=== PATIENT | male | born 1935 | race Caucasian/White ===

== ENCOUNTER → 2025-01-14 08:57 | Outpatient (REF) | payer OTHER, SELFPAY ==
[2025-01-14 09:35] LABS: % Basophils 0.3 % (0-2); % Eosinophils 0.1 % (0-6); % Immature Granulocytes 0.5 % (0-0.5); % Lymphocytes 15.3 % (20.5-51.1); % Neutrophils 70.8 % (42.2-75.2); Absolute Lymphocytes 1.2 10^3/uL (1.2-3.4); Absolute Neutrophils 5.4 10^3/uL (1.4-6.5); Hematocrit 34.5 % (39.0-52.0); Hemoglobin 11.4 g/dL (13.0-18.0); Mean Corpuscular Hgb 29.8 pg (27.0-31.0); Mean Corpuscular Volume 90.1 fL (80.0-94.0); Mean Platelet Volume 9.6 fL (7.4-10.4); Nucleated Red Blood Cells % 0 % (-); Platelet Count 211 10^3/uL (130-400); Red Blood Cell Count 3.83 10^6/uL (4.70-6.10); Red Cell Dist. Width 14.6 % (11.5-14.5); White Blood Cell Count 7.6 10^3/uL (4.8-10.8)
[2025-01-14 09:46] LABS: ALT (SGPT) 13 U/L (0-50); AST (SGOT) 26 U/L (17-59); Albumin 3.4 g/dl (3.5-5.0); Alkaline Phosphatase 74 U/L (38-126); Blood Urea Nitrogen 36 mg/dl (9-20); Calcium 9.4 mg/dl (8.4-10.2); Carbon Dioxide 29 mmol/L (22-30); Chloride 100 mmol/L (98-107); Glucose 90 mg/dl (70-99); Potassium 4.8 mmol/L (3.5-5.1); Sodium 134 mmol/L (135-145); Total Protein 6.1 g/dl (6.3-8.2); eGFR 58.17
== END ==
LOC: OLABN 08:57
PROVIDERS: ATTENDING PHYSICIAN Student in an Organized Health Care Education/Training Program
DX: R50.9 Fever, unspecified (principal)
CPT/HCPCS: 36415; 80053; 85025

== ENCOUNTER → 2025-03-06 11:10 | Outpatient (REF) | payer OTHER, SELFPAY ==
[2025-03-06 11:21] LABS: % Basophils 0.4 % (0-2); % Eosinophils 1.7 % (0-6); % Immature Granulocytes 0.5 % (0-0.5); % Lymphocytes 24.7 % (20.5-51.1); % Monocytes 11.7 % (1.7-9.3); Absolute Eosinophils 0.1 10^3/uL (0-0.7); Absolute Monocytes 0.9 10^3/uL (0.1-0.6); Absolute Neutrophils 4.9 10^3/uL (1.4-6.5); Hematocrit 39.3 % (39.0-52.0); Mean Corp Hgb Conc. 33.1 g/dL (33.0-37.0); Mean Corpuscular Hgb 30.7 pg (27.0-31.0); Mean Corpuscular Volume 92.7 fL (80.0-94.0); Mean Platelet Volume 9.6 fL (7.4-10.4); Nucleated Red Blood Cells % 0 % (-); Platelet Count 261 10^3/uL (130-400); Red Blood Cell Count 4.24 10^6/uL (4.70-6.10); Red Cell Dist. Width 15.7 % (11.5-14.5); White Blood Cell Count 8.1 10^3/uL (4.8-10.8)
[2025-03-06 11:43] LABS: Blood Urea Nitrogen 28 mg/dl (9-20); Carbon Dioxide 24 mmol/L (22-30); Chloride 105 mmol/L (98-107); Glucose 86 mg/dl (70-99); Potassium 4.8 mmol/L (3.5-5.1); Sodium 140 mmol/L (135-145); eGFR > 60.00
== END ==
LOC: OLABN 11:10
PROVIDERS: ATTENDING PHYSICIAN Student in an Organized Health Care Education/Training Program
DX: I10 Essential (primary) hypertension (principal)
CPT/HCPCS: 36415; 80048; 85025

== ENCOUNTER 2025-04-12 02:46 | Inpatient (IN) | payer MEDICARE, OTHER, SELFPAY ==
[2025-04-11 20:49] VITALS: BP 133/84
[2025-04-11 21:17] LABS: Urine Albumin 2+ (Neg - Trace); Urine Bilirubin Negative (Negative); Urine Character Clear (Clear); Urine Color Yellow; Urine Glucose Negative (Negative); Urine Ketone Negative (Negative); Urine Leukocyte 1+ (Negative); Urine Nitrite Negative (Negative); Urine Occult Blood 4+ (Negative); Urine Urobilinogen Negative (Neg - 1+)
[2025-04-11 21:27] LABS: % Basophils 0.2 % (0-2); % Eosinophils 0.3 % (0-6); % Immature Granulocytes 0.5 % (0-0.5); % Lymphocytes 11.1 % (20.5-51.1); % Monocytes 8.5 % (1.7-9.3); % Neutrophils 79.4 % (42.2-75.2); Absolute Lymphocytes 0.6 10^3/uL (1.2-3.4); Absolute Monocytes 0.5 10^3/uL (0.1-0.6); Absolute Neutrophils 4.6 10^3/uL (1.4-6.5); Hematocrit 56.3 % (39.0-52.0); Hemoglobin 19.3 g/dL (13.0-18.0); Mean Corp Hgb Conc. 34.3 g/dL (33.0-37.0); Mean Corpuscular Hgb 31.2 pg (27.0-31.0); Mean Corpuscular Volume 91.1 fL (80.0-94.0); Nucleated Red Blood Cells % 0 % (-); Red Blood Cell Count 6.18 10^6/uL (4.70-6.10); Red Cell Dist. Width 14.5 % (11.5-14.5); White Blood Cell Count 5.8 10^3/uL (4.8-10.8)
--- NOTE | 2025-04-11 21:27 | ED.GENMED ---
History of Present Illness
General
Chief Complaint: Change in Mental Status
Source: patient
Exam Limitations: none
Time Seen by Provider: 04/11/25 20:55
History of Present Illness
History of Present Illness:
89-year-old male with history of dementia and agitation presents from [facility] after unresponsive episode. Family tells us that he was sitting at the dining room eating and bystanders saw that he passed out. He was described as being
unresponsive for about 2 minutes. Patient cannot provide any history. Family noticed recent increase in Seroquel and since then he has not seen himself. During my exam the family notes he is very restless and this is abnormal for him as well.
Phy Exam
Physical Exam
Physical Exam:
General: Well-appearing male no acute respiratory distress
HEENT normocephalic atraumatic
Heart: Tachycardic but regular
Lungs: Clear no wheeze
Abdomen is soft and nontender
Neurologic exam: Opens eyes to verbal stimuli. Was able to tell me his name. Does appear restless.
Course
Orders/Labs/Results
Orders:
Orders
04/11/25 21:08
CBC/With Diff [Complete Blood Count/With Diff] Urgent
CMP [Comprehensive Metabolic Panel] Urgent
Urinalysis Reflex To Culture Urgent
Date Specimen was Collected: 04/11/25
Time Specimen was Collected: 21:04
Urine Microscopic Reflex Cult Urgent
Urine Culture Urgent
GAMA Source: U
Specimen Description:
Date Specimen was Collected: 04/11/25
Time Specimen was Collected: 21:04
04/11/25 21:11
EKG [Electrocardiogram (*1)] Urgent
Reason for Study: Tachycardia
EKG- Treatment ONCE
04/11/25 21:14
CT Head W/o Iv Contrast Urgent
Comment:
Reason For Exam: confusion
04/11/25 21:15
Electrocardiogram (*1) Urgent
Reason for Study: Syncope
EKG- Treatment ONCE
04/11/25 21:38
0.9% Sodium Chloride 1000 ml [Nss] 1,000 ml IV BOLUS
04/11/25 23:20
Lorazepam [Ativan] 1 mg IV NOW STA
04/12/25 00:00
CR Chest - 2 Views Urgent
Reason For Exam: syncope
04/12/25 00:11
0.9% Sodium Chloride 500 ml [Nss] 500 ml IV BOLUS
Abnormal Lab Results
04/11/25
21:08
RBC 6.18 H 10^6/uL
(4.70-6.10)
Hgb 19.3 H g/dL
(13.0-18.0)
Hct 56.3 H %
(39.0-52.0)
MCH 31.2 H pg
(27.0-31.0)
Plt Count 97 L 10^3/uL
(130-400)
Absolute Lymphs (auto) 0.6 L 10^3/uL
(1.2-3.4)
Neutrophils % 79.4 H %
(42.2-75.2)
Lymphocytes % 11.1 L %
(20.5-51.1)
Chloride 108 H mmol/L
(98-107)
BUN 52 H mg/dl
(9-20)
Creatinine 1.6 H mg/dL
(0.7-1.3)
Glucose 121 H mg/dl
(70-99)
Total Protein 6.0 L g/dl
(6.3-8.2)
Ur Occult Blood Reflex 4+ A
(Negative)
Leukocyte Esterase Rfl 1+ A
(Negative)
Urine RBC 26-30 A /HPF
(0-2)
Urine Bacteria (Reflex) Few A
(Negative)
Urine Albumin (Reflex) 2+ A
(Neg - Trace)
04/11/25 21:08
04/11/25 21:08
Vital Signs
Initial and Last Documented VS:
Initial Vital Signs
Temp Pulse Resp BP Pulse Ox
98.4 F 130 26 133/84 97
04/11/25 20:49 04/11/25 20:49 04/11/25 20:49 04/11/25 20:49 04/11/25 20:49
Last Documented Vital Signs
Temp Pulse Resp BP Pulse Ox
98.4 F 119 26 96/59 93
04/11/25 20:49 04/12/25 00:00 04/12/25 00:00 04/11/25 23:58 04/12/25 00:00
MDM/Problems Addressed
Differential Diagnosis Includes:
Patient had an unresponsive episode today question syncope versus seizure. Will check for electrolyte abnormality or anemia or arrhythmia. Patient is tachycardic but regular here. Question medication adverse reaction. Patient is not restless.
Workup with urine chest x-ray labs CT of head pending
*Critical Care Note
Total Time (30-74mins, 75-104mins- exclusive of procedures): Not Applicable
Update Note
Update Note:
Patient reevaluated spoke with daughters. Head CT shows no acute finding. He is hemoconcentrated with lab work showing hemoglobin of 19.3 with a BUN of 52 and a creatinine of 1.6. Patient has not yet returned to his baseline. Consider episode
earlier today as a product of syncope perhaps from dehydration. No evidence of arrhythmias. Also consider potential for medication adverse reaction secondary to recent increase of Seroquel. Will admit to hospital
ED Attending Note
-
Portions of this chart may have been created with voice recognition software.� Occasional wrong word or��sound alike� substitutions may have occurred due to the inherent limitations of voice recognition software.
Discharge Plan
Departure
Patient Disposition: Admit
Date of Disposition: 04/12/25
Time of Disposition: 00:39
Presentation/result/management discussed w/ accepting MD/DO: Hospitalist
Discharge Problem:
Acute dehydration
Prescriptions:
No Action
quetiapine [Seroquel] 25 mg Tablet
25 mg PO DAILY
atorvastatin 40 mg Tablet
40 mg PO HS
megestrol 400 mg/10 mL (40 mg/mL) Suspension
400 mg PO DAILY
sennosides [senna] 8.6 mg Tablet
17.2 mg PO DAILY
sertraline 25 mg Tablet
25 mg PO DAILY
aspirin [Aspirin Childrens] 81 mg Tablet,Chewable
81 mg PO DAILY
calcium carbonate 500 mg calcium (1,250 mg) Tablet,Chewable
500 mg PO BID
quetiapine [Seroquel] 50 mg Tablet
50 mg PO .1829
cholecalciferol (vitamin D3) 25 mcg (1,000 unit) Tablet
25 mcg PO DAILY
Referrals:
Santos Kelly DO [Family Provider] -
Interventions
Interventions:
*Risk Screen - Suicide Last Done: 04/11/25 20:49
*General Assessment Last Done: 04/11/25 20:49
*Neglect/Abuse Screening Last Done: 04/11/25 20:49
*ED- Fall Risk Assessment Last Done: 04/11/25 20:49
*ED COVID-19 Vaccine History Last Done: 04/11/25 20:49
ED- Pulmonary Assessment Last Done: 04/11/25 21:12
ED-Psychological Assessment Last Done: 04/11/25 21:12
ED- Neurological Assessment Last Done: 04/11/25 21:12
ED- Cardiac Assessment Last Done: 04/11/25 21:12
ED Swallowing Screen Last Done: 04/11/25 21:12
Discharge Date and Time
Print Language: UKRAINIAN
[2025-04-11 21:28] LABS: Urine Hyaline Cast >15 /LPF (0-2)
[2025-04-11 21:29] LABS: Urine Bacteria Few (Negative); Urine Red Blood Cell 26-30 /HPF (0-2); Urine White Cell 0-2 /HPF (0-5)
[2025-04-11 21:34] LABS: ALT (SGPT) 15 U/L (0-50); AST (SGOT) 20 U/L (17-59); Albumin 3.7 g/dl (3.5-5.0); Alkaline Phosphatase 50 U/L (38-126); Blood Urea Nitrogen 52 mg/dl (9-20); Calcium 9.7 mg/dl (8.4-10.2); Carbon Dioxide 26 mmol/L (22-30); Chloride 108 mmol/L (98-107); Glucose 121 mg/dl (70-99); Potassium 5.1 mmol/L (3.5-5.1); Sodium 140 mmol/L (135-145); Total Bilirubin 0.4 mg/dl (0.2-1.3); eGFR 41.19
[2025-04-11 21:37] LABS: Mean Platelet Volume 8.8 fL (7.4-10.4); Platelet Count 97 10^3/uL (130-400)
[2025-04-11] MEDS: NSS 1000 IV (21:42)
[2025-04-11] MEDS: ATIVAN 1 MG IV (23:30)
[2025-04-11 23:53] VITALS: BP 92/56
[2025-04-11 23:58] VITALS: BP 96/59
[2025-04-12] VITALS (54 sets, daily range): BP systolic 60–164; BP diastolic 39–124; BMI 20.7; BMI 19.7
[2025-04-12] MEDS: NSS 500 IV ×2 (00:14→01:14)
--- NOTE | 2025-04-12 01:44 | HPS.HSE ---
Family Physician
-
Family Physician: Santos Kelly DO
Chief Complaint
-
Altered mental status
History of Present Illness
This is a 89-year-old with past medical history significant for dementia with agitation, delusional disorder, hyperlipidemia, CKD with prior creatinine baseline of around 1.1 last month, prior history of tuberculosis, prior TIA without residual
deficits who presents to the emergency department from [facility] with episode of unresponsiveness.
History obtained from EMS. Completely EMS was called by nursing staff because patient was found to be unresponsive. He is not clear that he collapsed to the floor or injure himself in any way. There was no seizure-like activity noted. When EMS
arrived they found the patient sleeping comfortably. He was easily aroused with minor stimulation. There does not appear to be any postictal depression. On arrival in the emergency department he had wet himself. He was very agitated. History
not obtainable on account of his agitation as well as his dementia. Daughter reported that patient to be of agitation has been worsening since increasing of his Seroquel.
Evaluation in the ED after Ativan given showed a blood pressure of 87/56 pulse of 130 sinus, temp was 99.1 and was satting 97% on room air. CBC was notable for a hemoglobin of 19.3, platelet count of 97. White count was 5.8. Electrolytes were
normal. Creatinine was elevated at 1.6, BUN 53. LFTs were unremarkable.
CT of the head shows no acute intracranial process. Chest x-ray without any acute infiltrates.
After admission patient blood pressure remains soft in the 80s over 40s after given 2 L of normal saline. Did have some amount of fresh blood that he regurgitated. No coffee-ground material noted. Examination of the oral cavity shows no acute
bleeding. Patient is not on any thinners. He is on started having copious amount of emesis that was bloody and mixed with clots. He also had some coffee-ground material in addition to it. Patient vomited this bloody material 2 times. NG tube
was placed to evacuate approximately 1 L of bloody material as well as coffee-ground material. He continued to clot the tube despite frequent irrigation. Family reported that he had a remote history of bleeding peptic ulcer.
Repeat HGB was 5.9.
Medical History
Past Medical History
Past Medical History: Reports Other
Additional Past Medical History:
Unspecified dementia with agitation
Major depressive disorder
Wondering
CKD stage III
Hyperlipidemia
Delusional disorder
BPH
Prior history of TIA
Past Surgical History: Reports Other
Social History
Unable to obtain full social history at this time due to: Dementia
Family History
Family History: Not pertinent
Allergies / Home Medications
Allergies reflects when Allergies were last updated in [facility].
Home Medications with original date entered in [facility]
Allergy/Medication List:
Allergies
Allergy/AdvReac Type Severity Reaction Status Date / Time
No Known Allergies Allergy Unverified 04/11/25 20:36
Home Medications
aspirin 81 mg chewable tablet (Aspirin Childrens) 81 mg PO DAILY 04/12/25
atorvastatin 40 mg tablet 40 mg PO HS 04/12/25
calcium carbonate 500 mg PO BID 04/12/25
cholecalciferol (vitamin D3) 25 mcg (1,000 unit) tablet 25 mcg PO DAILY 04/12/25
megestrol 400 mg/10 mL (40 mg/mL) oral suspension 400 mg PO DAILY 04/12/25
quetiapine 25 mg tablet (Seroquel) 25 mg PO DAILY 04/12/25
quetiapine 50 mg tablet (Seroquel) 50 mg PO .1830 04/12/25
sennosides 8.6 mg tablet (senna) 17.2 mg PO DAILY 04/12/25
sertraline 25 mg tablet 25 mg PO DAILY 04/12/25
Review of Systems
-
Unable to obtain full review of systems at this time due to: Dementia
Physical Exam
Vital Signs
Vital Signs
Temp Pulse Resp BP Pulse Ox
99.1 F 100 23 87/56 97
04/12/25 01:15 04/12/25 00:42 04/12/25 00:42 04/12/25 00:42 04/12/25 00:22
Physical Exam
General: No Respiratory Distress
HEENT: NormoCephalic, Anicteric, Moist mucous membranes, Atraumatic, PERRLA, Neck Nontender and Other (NGT with blood output); No Good Dentition
Respiratory: Clear
Cardiac: S1/S2 and Tachycardia
Breast: Deferred by me
GI: Soft, Non Tender, Non Distended and Normal Bowel Sounds
Rectal: Deferred by Provider
Genito-urinary: Deferred by me
Musculoskeletal: No Clubbing, No Cyanosis and No Edema
Skin: Warm
Neuro: Awake; No Oriented
Psych: Apparent Dementia
Laboratory Results
-
04/11/25 21:08
04/11/25 21:08
Laboratory Results
Total Bilirubin 0.4 mg/dl (0.2-1.3) 04/11/25 21:08
AST 20 U/L (17-59) 04/11/25 21:08
ALT 15 U/L (0-50) 04/11/25 21:08
Alkaline Phosphatase 50 U/L (38-126) 04/11/25 21:08
Data Reviewed
-
Diagnostic Radiology: Image Personally Visualized and interpreted
CT Scan: Report Reviewed by me
Medical Tests (Nuc Med, Echo, EKG etc): Image Personally Visualized and interpreted
Lab Data: Labs Reviewed by me
Old Records: Reviewed
Impression/Plan
-
IMPRESSION:
Patient brought into the emergency department ostensibly for being found unresponsive. Per EMS patient was sleepy but easily arousable. Upon transfer to the emergency department he was found to be quite agitated requiring Ativan for sedation and
soft restraints. Initial work up unreavealing with UA via clean-catch was positive for hematuria but suspect this is a traumatic cath. There is no obvious infection. Chest x-ray is clear. Patient is afebrile. Abdominal exam was benign. Labs
were mostly notable for TONEY suspected to be prerenal as well as severe hemoconcentration versus possibility of polycythemia given the thrombocytopenia. However developed hematemesis and coffee ground emesis with subsequent hypotension in ED
concerning for bleeding ulcer.
Plan
1. GI bleed - Fresh bleeding suspected. approximately 1 L of recent blood evacuated via NG prior to clotting of tubes.
- admit to IMU
- NPO for now
- typed and screened and consented for blood.
- given 2 L NS for resuscitation
- will continue with IV LR and pressors to maintain map > 65
- ppi iv gtt. Octreotide gtt
- antiemetics
- transfusing 2 units now
- NGT placed for copious emesis (no h/o liver disease or varices)
- H&H q 6 hours
- GI consulted and notified.
TONEY - Suspect prerenal azotemia with possible ATN from hemorrhagic shock. Hematuria likely secondary to traumatic nieto.
- fluid resuscitation as above, continue lactated ringers
- blood transfusion
- pressors to keep map > 65
- bladder scan protocol
- avoid nephrotoxins and renal dose medications
Agitation - likely secondary to discomfort.
- holding seroquel for now
- iv ativan prn agitation
- pain control and antiemetics
DVT PPX - SCDs
Code status - limited DNR, do not intubate. D/W daughter Ani Orphanides
[2025-04-12 01:48] LABS: Lactic Acid 2.1 mmol/L (0.7-2.0)
[2025-04-12 01:52] LABS: COVID-19 Antigen Negative (Negative)
--- NOTE | 2025-04-12 02:00 | EDRN ---
Patient started vomiting up large gelatinous blood clots in copious amounts, and BP low, admitting provider at bedside as well as THUY Thomas, another line started on patient, fluids hung, NG tube placed as well which is draining blood.
[2025-04-12] MEDS: PROTONIX IV 80 MG IV (02:21)
[2025-04-12] MEDS: ZOFRAN 4 MG IV ×2 (02:24→14:53)
[2025-04-12] MEDS: FLUSH (NSS) 1 FLUSH IV (02:32)
[2025-04-12] MEDS: NSS (PRESERVATIVE FREE) 20 ML IV (02:33)
[2025-04-12] MEDS: SANDOSTATIN 500.6 MCG IV (02:33)
[2025-04-12 02:43] LABS: Hematocrit 16.1 % (39.0-52.0); Hemoglobin 5.4 g/dL (13.0-18.0)
[2025-04-12 02:45] LABS: INR 1.38; PT 17.2 Sec (11.4-14.6)
[2025-04-12 02:46] LABS: APTT 24.1 Sec (23.4-35.0)
[2025-04-12] MEDS: NSS 2000 IV (02:48)
--- NOTE | 2025-04-12 03:15 | EDRN ---
NG tube isn't draining as nicely, irrigated and pulled back, large clots coming out, have done this several times to try to clear cots, informed admitting provider of this as well.
[2025-04-12 03:19] LABS: Hematocrit 17.8 % (39.0-52.0); Hemoglobin 5.9 g/dL (13.0-18.0)
[2025-04-12] MEDS: LEVOPHED 250 IV (04:15)
--- NOTE | 2025-04-12 04:50 | EDRN ---
NG tube was switched out, clots seem to be clogging it, new NG tube placed in left nare, 18F, bloody secretions coming out
--- NOTE | 2025-04-12 05:41 | PTCARENOTE ---
Addendum entered by Cristina Horton 04/12/25 05:46:
b/l wrist restraints for attempts to remove tube
Original Note:
Rec'd pt as admit from ED. NGT present in L nare, bloody drainage visible in tubing, but nothing is coming through to the suction canister at this time. Pt arrived with levo at 2mcg, BP 122/84 MAP 95. HR 130s. 97% on RA. Pt appears restless,
attempting to pull at NGT. B/l wrist restraints placed as protective intervention per orders. Bed alarm in place for pt safety. Care ongoing
--- NOTE | 2025-04-12 07:59 | W.PN.UPDATE ---
Update Note
Progress Note Update
Update note - patient admitted 130 AM
Admitted with massive GI bleed with hemorrhagic shock, passage of blood/clots via NG placed for decompression and evacuation
Patient has received 2 unit PRBC and repeat Hb is pending; 2 additional units ordered.
He is on Levophed, PPI drip
stat EGD planned
Family updated code status: ok for intubation for stat EGD procedure. High risk for aspiration
Currently quite agitated and requiring 4 point restraints, prn Ativan as well
hold all PO meds at present
More appropriate for ICU level of care, transfer ordered
Family updated by GI service
Total Critical Care Time 45 minutes. I was immediately available to the patient and staff. I personally examined, reviewed labs, diagnostic images/reports, interpretations, treatment plans, discussed patient care with other providers and family
or caregivers (if patient is unable to make decisions), entered orders as appropriate and documented the medical record.
[2025-04-12] MEDS: PROTONIX 100 IV ×2 (08:07→17:46)
[2025-04-12] MEDS: D5LR IV (08:07)
[2025-04-12] MEDS: ATIVAN 1 MG IV ×2 (08:19→16:12)
[2025-04-12] MEDS: REGLAN 10 MG IV (08:20)
[2025-04-12] MEDS: NSS (PRESERVATIVE FREE) 0.5 ML IV (08:20)
[2025-04-12 08:22] LABS: Blood Urea Nitrogen 64 mg/dl (9-20); Calcium 8.4 mg/dl (8.4-10.2); Carbon Dioxide 18 mmol/L (22-30); Chloride 119 mmol/L (98-107); Estimated Creatinine Clearance 32 ml/min; Glucose 109 mg/dl (70-99); Potassium 5.5 mmol/L (3.5-5.1); Sodium 146 mmol/L (135-145); eGFR 52.84
[2025-04-12 08:41] LABS: Hemoglobin 10.1 g/dL (13.0-18.0); Mean Corp Hgb Conc. 34.8 g/dL (33.0-37.0); Mean Corpuscular Hgb 32.2 pg (27.0-31.0); Mean Corpuscular Volume 92.4 fL (80.0-94.0); Mean Platelet Volume 9.3 fL (7.4-10.4); Platelet Count 207 10^3/uL (130-400); Red Blood Cell Count 3.14 10^6/uL (4.70-6.10); Red Cell Dist. Width 14.3 % (11.5-14.5); White Blood Cell Count 18.3 10^3/uL (4.8-10.8)
--- NOTE | 2025-04-12 09:11 | PTCARENOTE ---
Rec'd pt this AM with continued vomitting blood and clots. MD notifed, GI notified. Both MDs at bedside. 2 more units PRBC's ordered. Pt agitated and restless, Ativan ordered and given with good effect. updated family. Pt now with ICU orders.
--- NOTE | 2025-04-12 09:42 | CM ---
Patient was in IMU and transferred to ICU today. Patient is a resident of the Dementia unit at [facility] and he is a LTC resident there per the nurse on the unit. Patient loves to talk about dancing and that was a life long interest. Per nurse patient is
a bed hold but will need to confirm with admissions during week. CM will continue to follow for discharge planning needs.
Plan; return to SNF; [facility]
--- NOTE | 2025-04-12 10:06 | CON.INTV ---
Addendum entered and electronically signed by Estrada Monzon MD 04/13/25 13:29:
-04/14. Patient transferring out of ICU to IMU.
-[employer] Manager service will sign off.
Original Note:
Consultation
Consultation Request
Date/Time Consultation Requested: 04/12/2025
Date/Time Consultation Performed: 04/12/2025
Requesting Provider: Pedro Kent
Performing Provider: Estrada Monzon
Reason for Consultation: GI bleed
Medical History
-
Chief Complaint: Weakness
History of Present Illness:
Patient has underlying dementia and is unable to provide me any meaningful information for HPI. Information obtained from records as well as discussion with the primary team. Reportedly patient has a history of dementia with agitation, delusional
disorder, hyperlipidemia who was brought to the hospital for. Of unresponsive in that at the nursing facility. Per EMS patient was reportedly sleeping and was aroused with little stimulation. In the emergency room he was noted to be agitated and
additional workup showed significant drop in hemoglobin. Patient had an episode of hematemesis. Subsequently patient had an NG tube placed bright red and coffee ground aspirate noted. Patient was also briefly started on Levophed after IV fluid
resuscitation and blood transfusion. In view of need for urgent endoscopy and pressor support, he was transferred to ICU for further management. Wireless Store Manager consultation was requested for further input.
Past Medical History
Past Medical History: Reports Other
Additional Past Medical History:
Unspecified dementia with agitation
Major depressive disorder
Wondering
CKD stage III
Hyperlipidemia
Delusional disorder
BPH
Prior history of TIA
Past Surgical History: Reports Other
Social History
Unable to obtain full social history at this time due to: Dementia
Family History
Family History: Not pertinent
Allergies / Home Medications
Allergies / Home Medications
Allergies
Allergy/AdvReac Type Severity Reaction Status Date / Time
No Known Allergies Allergy Unverified 04/11/25 20:36
Home Medications
�Medication �Instructions �Recorded �Confirmed �Last Taken �Type
aspirin 81 mg chewable tablet 81 mg PO DAILY 04/12/25 04/12/25 Unknown History
(Aspirin Childrens)
atorvastatin 40 mg tablet 40 mg PO HS 04/12/25 04/12/25 Unknown History
calcium carbonate 500 mg PO BID 04/12/25 04/12/25 Unknown History
cholecalciferol (vitamin D3) 25 25 mcg PO DAILY 04/12/25 04/12/25 Unknown History
mcg (1,000 unit) tablet
megestrol 400 mg/10 mL (40 mg/mL) 400 mg PO DAILY 04/12/25 04/12/25 Unknown History
oral suspension
quetiapine 25 mg tablet (Seroquel) 25 mg PO DAILY 04/12/25 04/12/25 Unknown History
quetiapine 50 mg tablet (Seroquel) 50 mg PO .18304/12/25 04/12/25 Unknown History
sennosides 8.6 mg tablet (senna) 17.2 mg PO DAILY 04/12/25 04/12/25 Unknown History
sertraline 25 mg tablet 25 mg PO DAILY 04/12/25 04/12/25 Unknown History
Review of Systems
-
Unable to Obtain full review of systems at this time due to: Dementia
Vitals / Labs / Diagnostic Testing
Vital Signs
Temp Pulse Resp BP Pulse Ox
98.1 F 113 17 164/95 91
04/12/25 09:10 04/12/25 09:00 04/12/25 09:00 04/12/25 08:55 04/12/25 09:10
Lab Data
04/12/25 08:01
Laboratory Results
04/12/25
02:26
PT 17.2 H
INR 1.38
APTT 24.1
Microbiology
04/12/25 01:26 Nasal Swab Influenza Types A & B (ABELARDO) - Final
Negative for Influenza A & B, NAAT
Negative results must be combined with clinical observations
and patient history.
Nucleic Acid Amplification test (NAAT)performed on the
[employer] ID NOW platform.
Diagnostic Testing:
Physical Exam
-
HEENT: Other (Pale conjunctiva. NG tube in place)
Cardiovascular: S1/S2
Respiratory: Clear and Non-Labored Respirations
GI: Non Distended
Neurology: Awake, Alert and Other (Not oriented.)
Skin: Warm
General: Comfortable
Assessment
-
#1. Acute blood loss anemia, hematemesis. Hemoglobin 5.4 on admission, down from 13 about a month ago. ?ASA related.
- Patient is s/p 2 L IV fluid bolus in the emergency room, 2 units packed RBCs transfused, additional PRBCs be currently infusing
- Protonix 80 mg IV push given currently on 8 mg/h infusion
- Serial H&H
- Anesthesia and GI service on case, patient planned for intubation and bedside endoscopy
- Strict n.p.o., aspiration precautions continue NG tube to suction
- Currently systolic blood pressure in 160s, Levophed has been weaned off, hypotension resolved
- INR 1.38, PTT 24, both normal, platelet count 207, normal. Aspirin on hold
- No fluid thrill or palpable ascites on exam, hold off antibiotics for now. Liver function test unremarkable.
#2. Hypotension.
- Related to hypovolemia both dehydration as well as blood loss
- Responded well to IV fluid resuscitation and packed RBCs
- Patient currently off Levophed, systolic blood pressure in 160s
- Afebrile, WBC count was 5.8 on admission.
#2. TONEY on admission.
- Creatinine was 1.6, improved to 1.3 today, suspect prerenal.
- Hypernatremia and hyperchloremia noted likely related to normal saline resuscitation, will change fluids to Ringer lactate instead
- Follow-up electrolytes and renal function around 4 PM today
CODE STATUS changed from DNR/DNI to limited DNR to proceed with intubation around procedure.
Critical Care time 62 mins -- The patient is admitted for acute critical illness for the treatment of vital organ failure and/or prevention of further life-threatening conditions. Total care includes time spent in review of history, physical exam,
medications, hemodynamic/ventilator parameters, laboratory data, imaging and discussion with house staff, pharmacy, respiratory therapy, personalization specialist, and nursing.
Data:
CT Head 03/2025: Atrophy noted, no acute changes
CXR 03/2025: No acute abnormality noted
--- NOTE | 2025-04-12 10:14 | CON.GI ---
Consultation
-
Date/Time Consultation Requested: 04/12/25
Date/Time Consultation Performed: 04/12/25
Requesting Provider:
Performing Provider:
Reason for Consultation: hemetemesis
Medical History
Chief Complaint / HPI
Chief Complaint: Hemetemesis
History of Present Illness:
89-year-old with history of underlying dementia who resides at [facility] being unresponsive while he was eating dinner last night. In the emergency room, he was noted to be tachycardic and hypotensive and
started having hematemesis with clots and large amounts of blood. NG tube placed and 1 L of coffee-ground material was aspirated. On admission, initial hemoglobin was noted to be 19.3 but then repeat was 5.4, after 2 units of packed red blood
cells it came up to 10.1. Prior hemoglobin 03/06/2021 was 13 and in December 2024 it was 11.4. She is currently in the IMU on pressors.
Called patient's daughters Ale and Samantha who were able to give some brief history. Questionable history of ulcer disease in the 1970s, patient used to have some abdominal pain and would go on a soft diet but as far as the daughter's note, there is
no history of GI bleeding, never admitted to the hospital with GI bleeding or received 2 blood transfusions. No known NSAID use. Not on any anticoagulation. Seroquel dose was recently increased. No other history could be obtained.
Past Medical History
Past Medical History: Hypercholesterolemia and Other (CKD, history of tuberculosis in the past, history of prior TIA, dementia)
Social History
Alcohol: None
Living: Retirement
Family History
Family History: Unable to Obtain
Allergies / Home Medications
Allergy/AdvReac Type Severity Reaction Status Date / Time
No Known Allergies Allergy Unverified 04/11/25 20:36
�Medication �Instructions �Recorded
aspirin 81 mg chewable tablet 81 mg PO DAILY 04/12/25
(Aspirin Childrens)
atorvastatin 40 mg tablet 40 mg PO HS 04/12/25
calcium carbonate 500 mg PO BID 04/12/25
cholecalciferol (vitamin D3) 25 25 mcg PO DAILY 04/12/25
mcg (1,000 unit) tablet
megestrol 400 mg/10 mL (40 mg/mL) 400 mg PO DAILY 04/12/25
oral suspension
quetiapine 25 mg tablet (Seroquel) 25 mg PO DAILY 04/12/25
quetiapine 50 mg tablet (Seroquel) 50 mg PO .182904/12/25
sennosides 8.6 mg tablet (senna) 17.2 mg PO DAILY 04/12/25
sertraline 25 mg tablet 25 mg PO DAILY 04/12/25
Review of Systems
-
Unable to obtain full review of systems at this time due to: Dementia
Vital Signs
Temp Pulse Resp BP Pulse Ox
98.1 F 113 17 164/95 91
04/12/25 09:10 04/12/25 09:00 04/12/25 09:00 04/12/25 08:55 04/12/25 09:10
Physical Exam
Exam
Cardiac: S1/S2
GI: Soft, Non Tender and Non Distended
Results
WBC 18.3 10^3/uL (4.8-10.8) H 04/12/25 08:01
Hgb 10.1 g/dL (13.0-18.0) L D 04/12/25 08:01
Hct 29.0 % (39.0-52.0) L 04/12/25 08:01
MCV 92.4 fL (80.0-94.0) 04/12/25 08:01
Plt Count 207 10^3/uL (130-400) D 04/12/25 08:01
Absolute Neuts (auto) 4.6 10^3/uL (1.4-6.5) 04/11/25 21:08
PT 17.2 Sec (11.4-14.6) H 04/12/25 02:26
INR 1.38 04/12/25 02:26
APTT 24.1 Sec (23.4-35.0) 04/12/25 02:26
Sodium 146 mmol/L (135-145) H 04/12/25 08:01
Potassium 5.5 mmol/L (3.5-5.1) H 04/12/25 08:01
Chloride 119 mmol/L (98-107) H 04/12/25 08:01
Carbon Dioxide 18 mmol/L (22-30) L 04/12/25 08:01
BUN 64 mg/dl (9-20) H 04/12/25 08:01
Creatinine 1.3 mg/dL (0.7-1.3) 04/12/25 08:01
Calcium 8.4 mg/dl (8.4-10.2) 04/12/25 08:01
Total Bilirubin 0.4 mg/dl (0.2-1.3) 04/11/25 21:08
AST 20 U/L (17-59) 04/11/25 21:08
ALT 15 U/L (0-50) 04/11/25 21:08
Alkaline Phosphatase 50 U/L (38-126) 04/11/25 21:08
Diagnostic Image Results:
Prior GI Procedures:
EGD:
Colonoscopy:
Assessment / Plan
-
89-year-old male with history of dementia, high cholesterol, CKD, prior TB, ? History of ulcer disease presenting from prison after syncopal episode and unresponsiveness, in the ER had upper GI bleeding with coffee-ground emesis and drop in
hemoglobin, currently in the IMU on pressors, received 2 units of packed red blood cells at this time.
- Upper GI bleeding, rule out ulcer disease, angiectasia, Diulafoy versus other
No history of alcohol abuse as per patient's daughters. No NSAID use.
Continue Protonix drip
2 more units of packed red blood cells ordered and urgent endoscopy is planned.
Consent obtained from patient's daughter, Ale who is the POA.
I also discussed with patient's daughters Ale and Samantha as there was initial DO NOT INTUBATE order. They want to reports that for the procedure and okay to intubate as I explained to them that there is a high risk of aspiration with upper GI
bleeding. They gave the consent to proceed with the upper endoscopy.
On repeat CBC, white count elevated to 18.3, cannot rule out aspiration. Discussed with Dr. Kent from hospitalist team, patient will be given dose of antibiotic and x-ray will be done as well to check for any aspiration pneumonitis.
Will follow
-
-
Thank you for consultation and allowing me to participate in the patient's care. Please call the foreign collection clerk GI physician during the after hours with any questions or concerns.
--- NOTE | 2025-04-12 10:52 | PTCARENOTE ---
Received patient from IMU. VSS hgb 10.1 pretransfusion presently hanging. Levophed off. BP 140-160 systolic with maps greater than 65. Family updated plan of cares, oriented to I[facility] plan of cares, updated icu level of cares. Homicide Squad Commanding Officer at bedside
with family. Protonix drip infusing. Noted soft loose small brown stool. CG/Bath provided, oral cares attempted, update 4pt, soft spd with skin cares, turning protocols in place. Update Gi team. Patient transfer to lab will follow up post egd plan
of cares.
--- NOTE | 2025-04-12 10:59 | PTCARENOTE ---
Update with rustic fence builder team. Follow up post egd results. One unit transfusing and sent with patient to lab. Hold second unit till repeat hgb/bmp collected.
--- NOTE | 2025-04-12 11:30 | PTCARENOTE ---
Will follow IVF and antibiotics when patient returns from GI lab. Labs to be drawn. Continue with follow up for headwaitress team and hospitalist post Lab study.
[2025-04-12] MEDS: D5LR 500 IV ×2 (13:39→20:00)
--- NOTE | 2025-04-12 14:08 | PTCARENOTE ---
Medical Billing Coder update return for EGD. Continue with ivf protonix follow up labs and assessment trends. Family update. Patient from half-way previously mobile with walker assist/light supervision) Patient was also on puree diet said 'was cleared by
speech but patient preferred to eat that way.' Follow up lab trends with Gi and cardiology fellow at 1600.
[2025-04-12 16:01] LABS: Hematocrit 31.2 % (39.0-52.0); Hemoglobin 10.8 g/dL (13.0-18.0)
--- NOTE | 2025-04-12 16:04 | PTCARENOTE ---
Vs unchanged as is assessment. IVF and protonix continues, antibiotics as per hospitalist. Repeat Hgb 10.8. Continue follow up labs with livestock inspector team.
[2025-04-12 16:15] LABS: Blood Urea Nitrogen 63 mg/dl (9-20); Carbon Dioxide 19 mmol/L (22-30); Chloride 118 mmol/L (98-107); Estimated Creatinine Clearance 37 ml/min; Glucose 132 mg/dl (70-99); Potassium 5.4 mmol/L (3.5-5.1); Sodium 144 mmol/L (135-145); eGFR > 60.00
[2025-04-12] MEDS: ZOSYN 50 IV (17:46)
[2025-04-12 21:40] LABS: Hematocrit 29.6 % (39.0-52.0); Hemoglobin 10.4 g/dL (13.0-18.0)
[2025-04-13] VITALS (26 sets, daily range): BP systolic 97–159; BP diastolic 59–100; BMI 19.5
--- NOTE | 2025-04-13 00:05 | PTCARENOTE ---
Pt continues to be restless, fidgety, throwing legs around/out of bed. Not answering questions or following commands, history of dementia and aggression. Pt trying to pull at IVs when unrestrained. B/L wrist restraints for safety reasons. Ativan PRN
for agitation. Afebrile, NSR/ST at times on monitor. BP stable. 1 IV removed, pt wiggled it out under restraint. Additional IV placed with AM lab draws. Pulses palpable no edema. 2L nasal cannula. NPO, no gi access. Small brown BM overnight,
incontinent. External condom catheter with ample clear yellow urine. Will monitor.
[2025-04-13] MEDS: ZOSYN 50 IV ×5 (01:00→23:11)
[2025-04-13] MEDS: D5LR 500 IV ×2 (01:36→08:26)
[2025-04-13] MEDS: ATIVAN 1 MG IV ×3 (03:07→15:50)
[2025-04-13] MEDS: PROTONIX 100 IV (03:08)
[2025-04-13 03:33] LABS: Hematocrit 36.3 % (39.0-52.0); Hemoglobin 12.7 g/dL (13.0-18.0); Mean Corpuscular Hgb 31.3 pg (27.0-31.0); Mean Corpuscular Volume 89.4 fL (80.0-94.0); Mean Platelet Volume 9.5 fL (7.4-10.4); Platelet Count 142 10^3/uL (130-400); Red Blood Cell Count 4.06 10^6/uL (4.70-6.10); Red Cell Dist. Width 15.4 % (11.5-14.5); White Blood Cell Count 8.9 10^3/uL (4.8-10.8)
[2025-04-13 03:45] LABS: Blood Urea Nitrogen 48 mg/dl (9-20); Calcium 8.7 mg/dl (8.4-10.2); Carbon Dioxide 22 mmol/L (22-30); Chloride 116 mmol/L (98-107); Estimated Creatinine Clearance 34 ml/min; Glucose 145 mg/dl (70-99); Potassium 4.9 mmol/L (3.5-5.1); Sodium 144 mmol/L (135-145); eGFR 58.17
--- NOTE | 2025-04-13 04:00 | PTCARENOTE ---
No change in previous assessment. CHG complete. AM labs sent and pending. Will monitor.
[2025-04-13] MEDS: DILAUDID 0.25 MG IV (06:08)
--- NOTE | 2025-04-13 10:00 | PTCARENOTE ---
Received patient from night RN at 0645. Assessment completed and documented in shift assessment.
Patient is AAOx0, borderline non-verbal (occasional grunts/incomprehensible sounds). Somnolent, however arousable to tactile stimuli. Agitated/aggressive when attempting to perform care. Attempts to punch/kick staff. Ativan IV PRN for agitation
administered. Restrained B/L UE. Continue Q2H Restraint Checks. 2L NC, diminished and coarse to bases. SR to ST with PVC's on monitor. R AC and R FA IV patent, IV Protonix and LRD5 infusions running as ordered. No edema, + pulses. Round abdomen,
hypoactive bowel sounds. No bowel movement evident. Condom catheter #25 draining yellow/straw urine. Skin intact. Linen change and hygiene care provided x2 as patient managed to remove condom catheter twice thus far.
[2025-04-13] MEDS: NSS (PRESERVATIVE FREE) 0.5 ML IV ×2 (10:17→15:51)
--- NOTE | 2025-04-13 10:34 | W.PN.GI.CBS2 ---
Today's Communication / Plan
-
- Upper GI bleeding, Likely related to gastric ulcer with stigmata of bleeding status post epi, BiCap and hemoclips.
Continue Protonix 40 mg IV twice daily
Hemoglobin seems to be stable without any further bleeding. BUN trending down as well.
Monitor H&H and transfuse if needed.
Once patient more awake, might need speech eval prior to starting clear liquid diet.
Chest x-ray showing possible left lower lobe pneumonia, could be related to aspiration.
Continue antibiotics.
Will follow
Assessment / Plan
-
89-year-old male with history of dementia, high cholesterol, CKD, prior TB, ? History of ulcer disease presenting from [facility] after syncopal episode and unresponsiveness, in the ER had upper GI bleeding with coffee-ground emesis and drop in
hemoglobin, currently in the ICU .
Impression: - Coffee ground material coating the duodenum.
- Hematin (altered blood/bpjofc-pivegn-dagt material)
in the entire stomach. Fluid aspiration performed
about 2000ml.
- Non-bleeding gastric ulcer with pigmented material.
Injected. Treated with bipolar cautery. Clips were
placed. This could be the likely cause of bleeding.
- 5 cm hiatal hernia.
- Scattered ulcerations esophagitis.
- Blebs found in the esophagus. Clips were placed.
- Upper GI bleeding, Likely related to gastric ulcer with stigmata of bleeding status post epi, BiCap and hemoclips.
Continue Protonix 40 mg IV twice daily
Hemoglobin seems to be stable without any further bleeding. BUN trending down as well.
Monitor H&H and transfuse if needed.
Once patient more awake, might need speech eval prior to starting clear liquid diet.
Chest x-ray showing possible left lower lobe pneumonia, could be related to aspiration.
Continue antibiotics.
Will follow
Subjective
Subjective
Date of Service: April 13, 2025
Patient lethargic and not awake yet. No further evidence of bleeding, no hematemesis.
Bowel management documented yesterday. Hemoglobin seems to be stable.
Objective
Data Reviewed
Laboratory Data:
Laboratory Results
04/13/25 03:01
04/13/25 03:01
Laboratory Results
PT 17.2 Sec (11.4-14.6) H 04/12/25 02:26
INR 1.38 04/12/25 02:26
APTT 24.1 Sec (23.4-35.0) 04/12/25 02:26
Total Bilirubin 0.4 mg/dl (0.2-1.3) 04/11/25 21:08
AST 20 U/L (17-59) 04/11/25 21:08
ALT 15 U/L (0-50) 04/11/25 21:08
Alkaline Phosphatase 50 U/L (38-126) 04/11/25 21:08
Vital Signs and I&O:
Vital Signs
Temp Pulse Resp BP Pulse Ox
98.3 F 99 27 159/93 99
04/13/25 07:21 04/13/25 10:00 04/13/25 10:00 04/13/25 10:00 04/13/25 10:00
I&O
04/12/25 04/13/25 04/14/25
06:59 06:59 06:59
Intake Total 250 / 250 2310 / 2400 360 / 360
Output Total 2850 / 2850 600 / 600
Balance 250 / 250 -540 / -450 -240 / -240
Physical Exam
Physical Exam
GI: Soft, Non Distended and Non Tender
--- NOTE | 2025-04-13 11:18 | W.PN.HOSP.TC ---
Today's Communication/Plan
-
see plan
Assessment / Plan
Assessment / Plan
Gen: NAD, NCAT
Neck: supple.
CV: tachy, reg rhythm, +S1/S2, no m/r/g.
Resp: CTAB, no rales, wheezes, or rhonchi.
Abd: +BS, soft, NT, ND
Skin: No rashes.
Neuro: CN 2-12 intact, non-focal.
Psych: calm
EGD: Coffee ground material coating the duodenum. Hematin (altered blood/vgjvyj-yhdxts-izxb material) in the entire stomach. Fluid aspiration performed about 2000ml. Non-bleeding gastric ulcer with pigmented material. Injected. Treated with bipolar
cautery. Clips were placed. This could be the likely cause of bleeding. 5 cm hiatal hernia. Scattered ulcerations esophagitis. Blebs found in the esophagus. Clips were placed.
Acute hemorrhagic shock due to acute blood loss anemia due to acute massive GIB:
-s/p 3U pRBCs
-EGD above, gastric ulcer, injected/cautery/clips
-was on PPI gtt, now on Protonix 40mg IV BID
-was on Levophed gtt, now off
-cont Zosyn
-cont IVFs
TONEY:
-due to GIB/prerenal azotemia
-resolved
Agitation/Delirium of acute illness in the setting of underlying dementia:
-Ativan PRN
Limited DNR/SCDs
Anticipated Discharge: > 48 hours
Subjective/Interval History
-
Date of Service: April 13, 2025
Had Ativan, currently somnolent.
Objective Data
-
Labs:
Laboratory Results
04/13/25
03:01
WBC 8.9
Hgb 12.7 L D
Hct 36.3 L
Plt Count 142 D
Sodium 144
Potassium 4.9
Chloride 116 H
Carbon Dioxide 22
BUN 48 H
Creatinine 1.2
Glucose 145 H
Calcium 8.7
Vital Signs:
Vital Signs
Temp Pulse Resp BP Pulse Ox
98.3 F 99 27 159/93 99
04/13/25 07:21 04/13/25 10:00 04/13/25 10:00 04/13/25 10:00 04/13/25 10:00
I&O
04/12/25 04/13/25 04/14/25
06:59 06:59 06:59
Intake Total 250 / 250 2310 / 2400 440 / 440
Output Total 2850 / 2850 600 / 600
Balance 250 / 250 -540 / -450 -160 / -160
[2025-04-13] MEDS: D5LR IV (14:20)
--- NOTE | 2025-04-13 14:24 | PTCARENOTE ---
Rec'd pt at 1400. Pt opens eyes, non verbal, unable to follow commands. B/L wrist restraints in place. Monitor SR/ST. Lungs CTA, pox 98% 2LNC, placed on RA pox 93%. +BS, abd soft/nt. Condom cath in place.
[2025-04-13] MEDS: NSS (PRESERVATIVE FREE) 10 ML IV (19:38)
[2025-04-13] MEDS: PROTONIX IV 40 MG IV (19:38)
[2025-04-13] MEDS: ZOFRAN 4 MG IV (19:38)
[2025-04-13] MEDS: D5LR 1000 IV (19:39)
--- NOTE | 2025-04-13 20:01 | W.PN.UPDATE ---
Update Note
Progress Note Update
-07:30 pm Patient was seen for tachypnea, RR in 30s. hr 102, bp 155/85. SPO2 in 96s RA. Afebrile.
Diminished lung sounds.
Patient noted with dry blood in the mouth but no visible sign of bleeding
CBC, BMP, chest x-ray ordered.
Normal WBC
hgb level dropped from 12.7 to 9.7. Still no signs of active bleeding and bp still stable. will recheck h&h q6hr and transfuse as needed.
Chest x-ray Shows
Left basilar opacification again seen which could represent atelectasis and/or pneumonia and small left pleural effusion.
Suspected new patchy right basilar opacification such as pneumonia.
-Patient was started on Zosyn for 04/12 for PNA. Was on renal dose 2.25 q 6hrs reviewed with the pharmacist and Zosyn dose adjusted based or crcl to 3.375 q 6hrs.
-02:10 am Patient is tachycardia, now abdomen is distended, patient is pale. Hgb trended down again from 9.7 to 8.5. Developed hypotension bp 91/ 80.
NSS 500cc given, abdomen CT ordered and 2 units of blood ordered.
Discussed with the daughters Samantha&Ale and they would like to change the code status to full code.
GI made aware/tiger text
Discussed with the straightener and aligner, will transfer the patient to ICU level.
Daughter updated regarding CT result and transfer.
[2025-04-13 20:19] LABS: Venous Blood Gas B.E. -2.7 mmol/L (-4 to +4); Venous Blood Gas HCO3 23.2 mmol/L (22-27); Venous Blood Gas O2 Sat % 98.1 %; Venous Blood Gas pCO2 44 mmHg (35-48); Venous Blood Gas pH 7.33 (7.32-7.43); Venous Blood Gas pO2 87 mmHg (30-50)
[2025-04-13 20:31] LABS: Hematocrit 27.3 % (39.0-52.0); Hemoglobin 9.7 g/dL (13.0-18.0); Mean Corp Hgb Conc. 35.5 g/dL (33.0-37.0); Mean Corpuscular Hgb 31.8 pg (27.0-31.0); Mean Corpuscular Volume 89.5 fL (80.0-94.0); Mean Platelet Volume 9.4 fL (7.4-10.4); Platelet Count 175 10^3/uL (130-400); Red Blood Cell Count 3.05 10^6/uL (4.70-6.10); Red Cell Dist. Width 15.3 % (11.5-14.5); White Blood Cell Count 9.8 10^3/uL (4.8-10.8)
[2025-04-13 20:37] LABS: COVID-19 Antigen Negative (Negative)
--- NOTE | 2025-04-13 20:38 | PTCARENOTE ---
Pt increased WOB tachypneic 30s, HR 105, BP 155/88. Afebrile. Pt not restless/agitated, resting calmly otherwise. PROMOTION SPECIALIST Jerardo called to bedside. XRAY complete, labs sent as ordered. Awaiting results. Sat remains 96-99%. Pt moans out with care, but is
otherwise nonverbal. CLINE stiff in movements. Restraints loosely maintained for safety reasons, pt pulls at IVs when unrestrained. PERRLA 3. Afebrile. NSR/ST. Pulses palpable, no edema. Room air. Airway dryness 2/2 open mouth breathing. RT Luc at
bedside to apply aerosol mask. NPO. Condom cath for incontinence and I&Os. Will monitor.
[2025-04-13 20:40] LABS: Blood Urea Nitrogen 36 mg/dl (9-20); Calcium 8.2 mg/dl (8.4-10.2); Carbon Dioxide 25 mmol/L (22-30); Chloride 112 mmol/L (98-107); Estimated Creatinine Clearance 45 ml/min; Glucose 109 mg/dl (70-99); Magnesium 1.7 mg/dl (1.6-2.3); Potassium 3.9 mmol/L (3.5-5.1); Sodium 140 mmol/L (135-145); eGFR > 60.00
[2025-04-14] VITALS (38 sets, daily range): BP systolic 68–150; BP diastolic 47–109; BMI 19.1
[2025-04-14] MEDS: ATIVAN 1 MG IV ×2 (00:01→18:48)
[2025-04-14] MEDS: DILAUDID 0.25 MG IV (00:48)
[2025-04-14 02:06] LABS: Hematocrit 24.6 % (39.0-52.0); Hemoglobin 8.5 g/dL (13.0-18.0); Mean Corp Hgb Conc. 34.6 g/dL (33.0-37.0); Mean Corpuscular Hgb 31.3 pg (27.0-31.0); Mean Corpuscular Volume 90.4 fL (80.0-94.0); Mean Platelet Volume 9.1 fL (7.4-10.4); Platelet Count 207 10^3/uL (130-400); Red Blood Cell Count 2.72 10^6/uL (4.70-6.10); Red Cell Dist. Width 15.1 % (11.5-14.5); White Blood Cell Count 14.2 10^3/uL (4.8-10.8)
[2025-04-14] MEDS: OFIRMEV 100 IV (02:49)
[2025-04-14] MEDS: NSS 500 IV (02:51)
[2025-04-14 03:23] LABS: Blood Urea Nitrogen 41 mg/dl (9-20); Calcium 8.5 mg/dl (8.4-10.2); Carbon Dioxide 26 mmol/L (22-30); Chloride 112 mmol/L (98-107); Estimated Creatinine Clearance 41 ml/min; Glucose 133 mg/dl (70-99); Potassium 4.3 mmol/L (3.5-5.1); Sodium 139 mmol/L (135-145); eGFR > 60.00
[2025-04-14 04:23] LABS: B.E. -2.8 mmol/L; HCO3 20.4 mmol/L (21-28); O2 Saturation % 97.5 % (94-98); PCO2 28 mmHg (35-48); PO2 89 mmHg (83-108); pH 7.47 (7.35-7.45)
[2025-04-14] MEDS: ZOSYN 50 IV ×2 (05:34→10:24)
--- NOTE | 2025-04-14 05:38 | PTCARENOTE ---
Tachycardic 120-130 sustained, no s/s anxiety/agitation, resting calmly. CHANDLER Kurtz notified via TT. 500 NSS and Ofirmev ordered. BP soft. Abdomen distended/semi firm. Repeat hgb sent and resulted. CHANDLER Kurtz at bedside for eval. CT abdomen complete.
Levophed started for hypotension as well as 2 units PRBC ordered. Family made aware and updated on plan of care. Level of care upgraded to ICU. Unable to obtain O2SAT, abg obtained to confirm oxygenation. CTA abdomen ordered, study obtained. GI
notified by CHANDLER Mondragon. Awaiting further orders.
[2025-04-14] MEDS: NSS (PRESERVATIVE FREE) 10 ML IV (08:03)
[2025-04-14] MEDS: PROTONIX IV 40 MG IV (08:03)
[2025-04-14 08:21] LABS: APTT 25.4 Sec (23.4-35.0); INR 1.15; PT 15.1 Sec (11.4-14.6)
[2025-04-14 08:26] LABS: Magnesium 1.7 mg/dl (1.6-2.3)
[2025-04-14 08:34] LABS: Hematocrit 28.7 % (39.0-52.0); Hemoglobin 10.4 g/dL (13.0-18.0)
--- NOTE | 2025-04-14 08:39 | W.PN.INTV ---
Addendum entered and electronically signed by Estrada Monzon MD 04/14/25 14:00:
Update
Met with patient's 3 daughters and son at bedside. Patient slightly tachypneic, increased work of breathing, essentially unresponsive.
We discussed patient's current medical conditions, risk of progressive respiratory failure and potential need for intubation mechanical ventilation.
After discussing various options including full code/DNR/DNI/comfort care only, family opted to proceed with comfort care only.
- Family agreeable to use of morphine as needed for air hunger
- Senior Software Analyst service will be available as needed
Original Note:
Today's Communication / Plan
Recommendations
- PRBC
- Continue IV fluids, Levophed as needed to keep MAP above 65
- Ongoing goals of care discussions
Assessment
-
#1. Shock, hemorrhagic due to acute blood loss anemia, rectus sheath hematoma (04/14)
- Overnight patient's hemoglobin dropped from 12.7 down to 8.5. Patient developed hypotension, started on Levophed, received 2 units of packed RBCs
- CT abdomen pelvis with contrast showed active extravasation in the rectus sheath
- Strict n.p.o., serial H&H, transfuse as needed
- IR service has been consulted, CODE STATUS switched again to full code
- Continue maintenance IV fluids, Levophed as needed, maintain MAP above 65.
#2. Acute blood loss anemia, hematemesis 04/12). Hemoglobin 5.4 on admission, down from 13 about a month ago. ?ASA related.
- Patient is s/p IV fluid bolus and packed RBCs
- Protonix 80 mg IV push given, later was started on PPI infusion, more recently on IV twice daily.
- Serial H&H
- Patient was intubated for the procedure and had EGD performed 04/13. Gastric ulcer treated with cautery also noted to have erosive esophagitis.
- Stool negative for guaiac this morning brown in color. Current deterioration appears to be related to rectus sheath hematoma rather than recurrent GI bleed.
#3. Hypotension.
- Related to hypovolemia both dehydration as well as blood loss
-S/p packed RBCs, continue IV fluids, Levophed as needed to keep MAP above 65.
#3. TONEY on admission.
- Creatinine was 1.6, improved to 1.1 today, suspect prerenal.
- Continue volume resuscitation
Goals of care discussion: I met with patient's daughter at bedside on 04/14. Patient currently needing low-dose levo, tachypneic on exam respiratory rate ranging between 28-32. Also noted to be tachycardiac in the high 120s to 1 low 130s. I
shared with the family that patient currently is critical and if his tachypnea gets any worse he is at risk of requiring intubation and mechanical ventilation. With age 89 and underlying dementia, his prognosis is poor. Family is awaiting arrival
of the brother and we will continue ongoing goals of care discussion.
Critical Care time 45 mins -- The patient is admitted for acute critical illness for the treatment of vital organ failure and/or prevention of further life-threatening conditions. Total care includes time spent in review of history, physical exam,
medications, hemodynamic/ventilator parameters, laboratory data, imaging and discussion with house staff, pharmacy, respiratory therapy, survey research associate, and nursing.
Data:
CT Abd/Pelvis 03/2025: 1. Right rectus sheath hematoma, with a focus of extravasation. Rectus sheath hematoma measures 2.4 cm in thickness, compared to 2.1 cm on prior noncontrast CT. No intraperitoneal hemorrhage.
2. Hyperattenuating material within the gastric lumen, which may represent hemorrhage or hyperattenuating ingested food products. No extravasation of contrast within the stomach.
CT Head 03/2025: Atrophy noted, no acute changes
CXR 03/2025: No acute abnormality noted
Subjective Dataa
Subjective Data
Date of Service:
Date of Service: April 14, 2025
Objective Data
Data Reviewed
Vital Signs / I&O / Oxygen:
Vital Signs
Temp Pulse Resp BP Pulse Ox
98.1 F 123 28 123/89 95
04/14/25 07:47 04/14/25 07:46 04/14/25 07:46 04/14/25 07:46 04/14/25 01:00
Intake and Output
04/13/25 04/14/25 04/15/25
06:59 06:59 06:59
Intake Total 2310 / 2400 3260 / 3340 410 / 410
Output Total 2850 / 2850 1700 / 1700
Balance -540 / -450 1560 / 1640 410 / 410
SaO2 95
Nasal Cannula flow liters per 2
minute
Labs/Micro/Reports
Lab Data
04/14/25 01:52
Laboratory Results
04/14/25 04/14/25
04:01 07:57
PT 15.1 H
INR 1.15
APTT 25.4
pH 7.47 H
pCO2 28 L
pO2 89
HCO3 20.4 L
O2 Delivery Level
Microbiology
04/11/25 21:08 Urine Urine Culture - Final
NO GROWTH
04/12/25 01:26 Nasal Swab Influenza Types A & B (ABELARDO) - Final
Negative for Influenza A & B, NAAT
Negative results must be combined with clinical observations
and patient history.
Nucleic Acid Amplification test (NAAT)performed on the
[employer] platform.
--- NOTE | 2025-04-14 08:52 | PTCARENOTE ---
recd 0705 handoff bedside, VS noted, PC infusing. does not respond to commands, occas opens eyes, restless movements of hands. on humidified room air mask for comfort and tachypnea. turned, cleaned, brown formed BM, heme neg, cleaned, skin care
given. labs drawn, sent, beginning to result. seen by Drs. Leslie and Na. family bedside. rest of assessment as noted. lower BP noted, levophed restarted at 1 mcg per d/w MD. family gathering bedside.
--- NOTE | 2025-04-14 09:21 | W.PN.UPDATE ---
Update Note
Progress Note Update
Right rectus sheath hematoma with focus of extravasation, associated with hemoglobin drop. No intraperitoneal hemorrhage.
Rectus sheath hematoma is small in size, 2.4 cm in thickness, with no peritoneal extension. Spontaneous rectus sheath hematomas generally tamponade without intervention. Abdominal binder may help tamponade the bleeding.
Overall risks of intervention likely outweigh the benefits at this time.
--- NOTE | 2025-04-14 09:35 | W.PN.HOSP.TC ---
Today's Communication/Plan
-
see plan
Assessment / Plan
Assessment / Plan
Gen: appears in mild respiratory distress/discomfort, NCAT
Neck: supple.
CV: remains tachy, reg rhythm, +S1/S2, no m/r/g.
Resp: CTAB, no rales, wheezes, or rhonchi.
Abd: +BS, soft, NT, lower abdomen with soft tissue protrusion consistent with known rectus sheath hematoma
Skin: No rashes.
Neuro: Unresponsive
Psych: calm
EGD: Coffee ground material coating the duodenum. Hematin (altered blood/joibcm-suvohb-rjjn material) in the entire stomach. Fluid aspiration performed about 2000ml. Non-bleeding gastric ulcer with pigmented material. Injected. Treated with bipolar
cautery. Clips were placed. This could be the likely cause of bleeding. 5 cm hiatal hernia. Scattered ulcerations esophagitis. Blebs found in the esophagus. Clips were placed.
CXR 04/14/25PM: Left basilar opacification again seen which could represent atelectasis and/or pneumonia and small left pleural effusion. Suspected new patchy right basilar opacification such as pneumonia.
CTA A/P 04/14/25AM:
1. Right rectus sheath hematoma, with a focus of extravasation. Rectus sheath hematoma measures 2.4 cm in thickness, compared to 2.1 cm on prior noncontrast CT. No intraperitoneal hemorrhage.
2. Hyperattenuating material within the gastric lumen, which may represent hemorrhage or hyperattenuating ingested food products. No extravasation of contrast within the stomach.
Acute hemorrhagic shock due to acute blood loss anemia due to acute massive GIB and now rectus sheath hematoma:
-s/p 5U pRBCs in total
-EGD above, gastric ulcer, injected/cautery/clips
-was on PPI gtt, now on Protonix 40mg IV BID
-was on Levophed gtt, then off, then back on Levophed briefly 04/14/25AM (see below)
-O/N 04/13/25-04/14/25 patient had tachypnea. CXR above. Pt also had a drop in hemoglobin, hypotension, and worsening tachycardia. Abdomen was more distended. CTA A/P above. The patient was given 500 cc NS bolus and Levophed gtt was restarted.
Patient was transferred back to ICU level of care and CODE STATUS was changed to full code. The case has been reviewed by interventional radiology. No intervention is recommended at this time his rectus sheath hematoma is small and these generally
tamponade on their own.
-cont Zosyn
-cont IVFs
TONEY:
-due to GIB/prerenal azotemia
-resolved
Agitation/Delirium of acute illness in the setting of underlying dementia:
-Ativan PRN
DNR/SCDs
I had a lengthy discussion with the patient's 3 daughters at bedside. Patient's nurse was present for the discussion. I explained that considering the patient's advanced age, underlying advanced dementia, as well as recent events including massive
upper GI bleed and now rectus sheath hematoma that the patient is overall prognosis is poor. Patient's family would like to make the patient DNR. They are considering comfort care once the patient's son arrives.
Total critical care time spent = 35 min
Anticipated Discharge: Within 24 hours
Subjective/Interval History
-
Date of Service: April 14, 2025
Pt unresponsive.
Objective Data
-
Labs:
Laboratory Results
04/14/25 04/14/25 04/14/25
01:52 01:52 01:52
WBC 14.2 H
Hgb 8.5 L Cancelled
Hct 24.6 L Cancelled
Plt Count 207
PT
INR
APTT
HCO3
Sodium 139
Potassium 4.3
Chloride 112 H
Carbon Dioxide 26
BUN 41 H
Creatinine 1.0
Glucose 133 H
Calcium 8.5
Total Bilirubin
AST
ALT
Alkaline Phosphatase
04/14/25 04/14/25 04/14/25
04:01 06:00 07:57
WBC
Hgb Pending 10.4 L D
Hct Pending 28.7 L
Plt Count
PT 15.1 H
INR 1.15
APTT 25.4
HCO3 20.4 L
Sodium Pending
Potassium Pending
Chloride Pending
Carbon Dioxide Pending
BUN Pending
Creatinine Pending
Glucose Pending
Calcium Pending
Total Bilirubin Pending
AST Pending
ALT Pending
Alkaline Phosphatase Pending
04/14/25
14:00
WBC
Hgb Pending
Hct Pending
Plt Count
PT
INR
APTT
HCO3
Sodium
Potassium
Chloride
Carbon Dioxide
BUN
Creatinine
Glucose
Calcium
Total Bilirubin
AST
ALT
Alkaline Phosphatase
Vital Signs:
Vital Signs
Temp Pulse Resp BP Pulse Ox
98.1 F 125 17 131/87 97
04/14/25 07:47 04/14/25 08:47 04/14/25 08:47 04/14/25 08:47 04/14/25 08:47
I&O
04/13/25 04/14/25 04/15/25
06:59 06:59 06:59
Intake Total 2310 / 2400 3260 / 3340 490 / 490
Output Total 2850 / 2850 1700 / 1700
Balance -540 / -450 1560 / 1640 490 / 490
[2025-04-14 10:04] LABS: ALT (SGPT) 15 U/L (0-50); AST (SGOT) 26 U/L (17-59); Albumin 2.3 g/dl (3.5-5.0); Alkaline Phosphatase 28 U/L (38-126); Blood Urea Nitrogen 45 mg/dl (9-20); Carbon Dioxide 20 mmol/L (22-30); Chloride 114 mmol/L (98-107); Estimated Creatinine Clearance 36 ml/min; Glucose 133 mg/dl (70-99); Potassium 4.5 mmol/L (3.5-5.1); Sodium 138 mmol/L (135-145); Total Bilirubin 1.3 mg/dl (0.2-1.3); Total Protein 4.2 g/dl (6.3-8.2); eGFR > 60.00
--- NOTE | 2025-04-14 10:39 | W.PN.GI.CBS2 ---
Today's Communication / Plan
-
- Upper GI bleeding, Likely related to gastric ulcer with stigmata of bleeding status post epi, BiCap and hemoclips.
Hemodynamic instability overnight with CT angiogram without any evidence of GI bleeding but rectus sheath hematoma noted. Reviewed interventional radiology note, no need for intervention at this time.
Continue Protonix 40 mg IV twice daily
Continue to monitor hemoglobin and and transfuse if needed.
Noted critical care and hospitalist team's conversation with the family, patient is DNR at this time they are considering comfort measures.
Chest x-ray showing possible left lower lobe pneumonia, could be related to aspiration.
Continue antibiotics.
Assessment / Plan
-
89-year-old male with history of dementia, high cholesterol, CKD, prior TB, ? History of ulcer disease presenting from [facility] after syncopal episode and unresponsiveness, in the ER had upper GI bleeding with coffee-ground emesis and drop in
hemoglobin, currently in the ICU .
Impression: - Coffee ground material coating the duodenum.
- Hematin (altered blood/hidyah-xyefze-atam material)
in the entire stomach. Fluid aspiration performed
about 2000ml.
- Non-bleeding gastric ulcer with pigmented material.
Injected. Treated with bipolar cautery. Clips were
placed. This could be the likely cause of bleeding.
- 5 cm hiatal hernia.
- Scattered ulcerations esophagitis.
- Blebs found in the esophagus. Clips were placed.
- Upper GI bleeding, Likely related to gastric ulcer with stigmata of bleeding status post epi, BiCap and hemoclips.
Hemodynamic instability overnight with CT angiogram without any evidence of GI bleeding but rectus sheath hematoma noted. Reviewed interventional radiology note, no need for intervention at this time.
Continue Protonix 40 mg IV twice daily
Continue to monitor hemoglobin and and transfuse if needed.
Noted critical care and hospitalist team's conversation with the family, patient is DNR at this time they are considering comfort measures.
Chest x-ray showing possible left lower lobe pneumonia, could be related to aspiration.
Continue antibiotics.
Subjective
Subjective
Date of Service: April 14, 2025
Events overnight noted, patient was tachycardic and tachypneic, noted to have some distention of the abdomen, subsequent CT scan showed extravasation of blood into the rectus sheath with rectus sheath hematoma, no evidence of active GI bleed in the
stomach.
Objective
Data Reviewed
Laboratory Data:
Laboratory Results
04/14/25 07:57
Laboratory Results
PT 15.1 Sec (11.4-14.6) H 04/14/25 07:57
INR 1.15 04/14/25 07:57
APTT 25.4 Sec (23.4-35.0) 04/14/25 07:57
Magnesium 1.7 mg/dl (1.6-2.3) 04/14/25 07:57
Total Bilirubin 1.3 mg/dl (0.2-1.3) 04/14/25 07:57
AST 26 U/L (17-59) 04/14/25 07:57
ALT 15 U/L (0-50) 04/14/25 07:57
Alkaline Phosphatase 28 U/L (38-126) L 04/14/25 07:57
Vital Signs and I&O:
Vital Signs
Temp Pulse Resp BP Pulse Ox
98.1 F 130 17 128/84 100
04/14/25 07:47 04/14/25 10:00 04/14/25 10:00 04/14/25 10:00 04/14/25 10:00
I&O
04/13/25 04/14/25 04/15/25
06:59 06:59 06:59
Intake Total 2310 / 2400 3260 / 3340 570 / 570
Output Total 2850 / 2850 1700 / 1700
Balance -540 / -450 1560 / 1640 570 / 570
Physical Exam
Physical Exam
GI: Soft and Tender (Discomfort on palpation mid abdomen.)
[2025-04-14] MEDS: DILAUDID 0.5 MG IV (11:10)
[2025-04-14] MEDS: D5LR 1000 IV (11:10)
--- NOTE | 2025-04-14 11:13 | PTCARENOTE ---
grimacing, guarding abd. order requested and received for pain med, family bedside, aware and in agreement. CAM removed, pt remains comfortable, oral care given.
--- NOTE | 2025-04-14 14:19 | PTCARENOTE ---
comfort care orders noted. family present bedside, turned, positioned for comfort, oral care.
--- NOTE | 2025-04-14 14:45 | PTCARENOTE ---
family updated, questions answered, IV fluids capped per order. Comfort care discussions reviewed.
[2025-04-14] MEDS: MORPHINE SULFATE 2 MG IV ×4 (16:27→23:53)
--- NOTE | 2025-04-14 16:36 | PTCARENOTE ---
turned, skin care, condom cath replaced, oral care. some grimacing, see pain scale, medicated as noted.
[2025-04-14] MEDS: HALDOL 2 MG IV (17:00)
--- NOTE | 2025-04-14 18:40 | TRANSFER ---
premed as noted with morphine, see JAN, transferred to new bed in ICU then taken to new room on 2128. handoff bedside to oncoming staff, family accompanied, no other change. all belongings removed from room.
[2025-04-14] MEDS: NSS (PRESERVATIVE FREE) 0.5 ML IV (18:48)
[2025-04-15] MEDS: MORPHINE SULFATE 2 MG IV ×6 (01:54→16:02)
[2025-04-15] MEDS: ATIVAN 1 MG IV ×3 (01:54→13:13)
[2025-04-15] MEDS: NSS (PRESERVATIVE FREE) 0.5 ML IV ×3 (01:55→13:14)
[2025-04-15 02:13] VITALS: BP 92/58
[2025-04-15] MEDS: HALDOL 2 MG IV (05:03)
[2025-04-15 07:05] VITALS: BP 101/70
--- NOTE | 2025-04-15 08:09 | W.PN.HOSP.TC ---
Today's Communication/Plan
-
see bold
Assessment / Plan
Assessment / Plan
Gen: NAD, NCAT
CV: continues to remain tachy, reg rhythm, +S1/S2, no m/r/g.
Resp: CTAB, no rales, wheezes, or rhonchi.
Skin: No rashes.
Neuro: Unresponsive
Psych: calm
Pt now comfort care. Cont Ativan/Morphine/Haldol PRN.
From 04/14/25:
EGD: Coffee ground material coating the duodenum. Hematin (altered blood/smpien-bgjjou-nibw material) in the entire stomach. Fluid aspiration performed about 2000ml. Non-bleeding gastric ulcer with pigmented material. Injected. Treated with bipolar
cautery. Clips were placed. This could be the likely cause of bleeding. 5 cm hiatal hernia. Scattered ulcerations esophagitis. Blebs found in the esophagus. Clips were placed.
CXR 04/14/25PM: Left basilar opacification again seen which could represent atelectasis and/or pneumonia and small left pleural effusion. Suspected new patchy right basilar opacification such as pneumonia.
CTA A/P 04/14/25AM:
1. Right rectus sheath hematoma, with a focus of extravasation. Rectus sheath hematoma measures 2.4 cm in thickness, compared to 2.1 cm on prior noncontrast CT. No intraperitoneal hemorrhage.
2. Hyperattenuating material within the gastric lumen, which may represent hemorrhage or hyperattenuating ingested food products. No extravasation of contrast within the stomach.
Acute hemorrhagic shock due to acute blood loss anemia due to acute massive GIB and now rectus sheath hematoma:
-s/p 5U pRBCs in total
-EGD above, gastric ulcer, injected/cautery/clips
-was on PPI gtt, now on Protonix 40mg IV BID
-was on Levophed gtt, then off, then back on Levophed briefly 04/14/25AM (see below)
-O/N 04/13/25-04/14/25 patient had tachypnea. CXR above. Pt also had a drop in hemoglobin, hypotension, and worsening tachycardia. Abdomen was more distended. CTA A/P above. The patient was given 500 cc NS bolus and Levophed gtt was restarted.
Patient was transferred back to ICU level of care and CODE STATUS was changed to full code. The case has been reviewed by interventional radiology. No intervention is recommended at this time his rectus sheath hematoma is small and these generally
tamponade on their own.
-cont Zosyn
-cont IVFs
TONEY:
-due to GIB/prerenal azotemia
-resolved
Agitation/Delirium of acute illness in the setting of underlying dementia:
-Ativan PRN
DNR
Anticipated Discharge: Within 24 hours
Subjective/Interval History
-
Date of Service: April 15, 2025
Pt unresponsive.
Objective Data
-
Labs:
Laboratory Results
04/15/25
06:00
WBC Cancelled
Hgb Cancelled
Hct Cancelled
Plt Count Cancelled
Sodium Cancelled
Potassium Cancelled
Chloride Cancelled
Carbon Dioxide Cancelled
BUN Cancelled
Creatinine Cancelled
Glucose Cancelled
Calcium Cancelled
Vital Signs:
Vital Signs
Temp Pulse Resp BP Pulse Ox
99.3 F 108 16 92/58 97
04/15/25 02:13 04/15/25 02:13 04/15/25 02:13 04/15/25 02:13 04/15/25 02:13
I&O
04/14/25 04/15/25 04/16/25
06:59 06:59 06:59
Intake Total 3260 / 3340 890 / 890
Output Total 1700 / 1700 220 / 220
Balance 1560 / 1640 670 / 670
[2025-04-15] MEDS: ROBINUL 0.2 MG IV (13:13)
--- NOTE | 2025-04-15 14:51 | HOSPNOTE ---
Met with family and will support. Patient appears imminent. Will continue to follow.
--- NOTE | 2025-04-15 15:14 | CM ---
CM following re: discharge planning.
reviewed pt's chart.
Per chart review, pt is comfort care.
CM is available for emotional support.
[2025-04-15] MEDS: MORPHINE 100 IV (17:16)
[2025-04-15 19:36] VITALS: BP 100/61
[2025-04-16] MEDS: ATIVAN 1 MG IV ×3 (01:23→16:00)
[2025-04-16] MEDS: NSS (PRESERVATIVE FREE) 0.5 ML IV ×3 (01:23→16:00)
[2025-04-16] MEDS: MORPHINE SULFATE 2 MG IV ×6 (01:24→18:06)
[2025-04-16 07:21] VITALS: BP 119/76
[2025-04-16] MEDS: ROBINUL 0.2 MG IV (07:51)
--- NOTE | 2025-04-16 08:04 | W.PN.HOSP.TC ---
Today's Communication/Plan
-
see plan
Assessment / Plan
Assessment / Plan
Gen: NAD, NCAT
CV: tachy, reg rhythm, +S1/S2, no m/r/g.
Resp: CTAB anteriorly, no rales, wheezes, or rhonchi.
Neuro: Unresponsive
Psych: calm
Pt now comfort care. Cont Ativan/Morphine gtt/Haldol PRN.
From 04/14/25:
EGD: Coffee ground material coating the duodenum. Hematin (altered blood/ubmuim-shirhu-guln material) in the entire stomach. Fluid aspiration performed about 2000ml. Non-bleeding gastric ulcer with pigmented material. Injected. Treated with bipolar
cautery. Clips were placed. This could be the likely cause of bleeding. 5 cm hiatal hernia. Scattered ulcerations esophagitis. Blebs found in the esophagus. Clips were placed.
CXR 04/14/25PM: Left basilar opacification again seen which could represent atelectasis and/or pneumonia and small left pleural effusion. Suspected new patchy right basilar opacification such as pneumonia.
CTA A/P 04/14/25AM:
1. Right rectus sheath hematoma, with a focus of extravasation. Rectus sheath hematoma measures 2.4 cm in thickness, compared to 2.1 cm on prior noncontrast CT. No intraperitoneal hemorrhage.
2. Hyperattenuating material within the gastric lumen, which may represent hemorrhage or hyperattenuating ingested food products. No extravasation of contrast within the stomach.
Acute hemorrhagic shock due to acute blood loss anemia due to acute massive GIB and now rectus sheath hematoma:
-s/p 5U pRBCs in total
-EGD above, gastric ulcer, injected/cautery/clips
-was on PPI gtt, now on Protonix 40mg IV BID
-was on Levophed gtt, then off, then back on Levophed briefly 04/14/25AM (see below)
-O/N 04/13/25-04/14/25 patient had tachypnea. CXR above. Pt also had a drop in hemoglobin, hypotension, and worsening tachycardia. Abdomen was more distended. CTA A/P above. The patient was given 500 cc NS bolus and Levophed gtt was restarted.
Patient was transferred back to ICU level of care and CODE STATUS was changed to full code. The case has been reviewed by interventional radiology. No intervention is recommended at this time his rectus sheath hematoma is small and these generally
tamponade on their own.
-cont Zosyn
-cont IVFs
TONEY:
-due to GIB/prerenal azotemia
-resolved
Agitation/Delirium of acute illness in the setting of underlying dementia:
-Ativan PRN
DNR
Anticipated Discharge: Within 24 hours
Subjective/Interval History
-
Date of Service: April 16, 2025
Unresponsive.
Objective Data
-
Vital Signs:
Vital Signs
Temp Pulse Resp BP Pulse Ox
98.4 F 110 10 119/76 93
04/16/25 07:21 04/16/25 07:21 04/16/25 07:21 04/16/25 07:21 04/16/25 07:21
I&O
04/15/25 04/16/25 04/17/25
06:59 06:59 06:59
Intake Total 890 / 890 0 / 0
Output Total 220 / 220
Balance 670 / 670 0 / 0
--- NOTE | 2025-04-16 18:01 | DOWNTIME ---
There was a [employer] Downtime on 04/16/2025 from 1230 to 04/16/2025 at 1550. Downtime documentation of patient's care, including medication administrations, has been reconciled in the electronic record per guidelines. Refer to the
patient's paper chart under the miscellaneous tab to see printed paper medication records and downtime forms.
[2025-04-16 19:40] VITALS: BP 117/73
[2025-04-17] MEDS: ATIVAN 1 MG IV ×2 (00:22→12:28)
[2025-04-17] MEDS: NSS (PRESERVATIVE FREE) 0.5 ML IV ×2 (00:22→12:27)
--- NOTE | 2025-04-17 01:15 | PTCARENOTE ---
Addendum entered by Briana Leon RN 04/17/25 06:44:
Pt appeared to remain comfortable over night, Daughter remain at bedside. Pt RR 6 with periods of apnea 10second long. Pt remains on stage 2, end of life symptom scoring 1-3.
Original Note:
Pt remains on stage 2. Pt appearing to be comfortable in beginning of shift. After being changed Pt having some agitation. Ativan given, reassessment pt responding well to med. Pt daughters at bed side.
[2025-04-17 07:05] VITALS: BP 113/71
[2025-04-17] MEDS: MORPHINE 100 IV (12:23)
[2025-04-17] MEDS: ROBINUL 0.2 MG IV (12:27)
[2025-04-17] MEDS: MORPHINE SULFATE 2 MG IV (12:28)
--- NOTE | 2025-04-17 14:14 | CM ---
CM following re: discharge planning.
Reviewed pt's chart.
Per chart review, pt is comfort care.
CM is available for emotional support.
--- NOTE | 2025-04-17 17:35 | W.PN.HOSP.TC ---
Today's Communication/Plan
-
see bold
Assessment / Plan
Assessment / Plan
Gen: NAD, NCAT
CV: tachy, reg rhythm, +S1/S2, no m/r/g.
Resp: CTAB anteriorly, no rales, wheezes, or rhonchi.
Abd: hypoactive BS, soft, ND
Neuro: Unresponsive
Psych: calm
Pt comfort care. Cont Ativan/Morphine gtt/Haldol PRN.
From 04/14/25:
EGD: Coffee ground material coating the duodenum. Hematin (altered blood/pbuivs-wklscv-xzuv material) in the entire stomach. Fluid aspiration performed about 2000ml. Non-bleeding gastric ulcer with pigmented material. Injected. Treated with bipolar
cautery. Clips were placed. This could be the likely cause of bleeding. 5 cm hiatal hernia. Scattered ulcerations esophagitis. Blebs found in the esophagus. Clips were placed.
CXR 04/14/25PM: Left basilar opacification again seen which could represent atelectasis and/or pneumonia and small left pleural effusion. Suspected new patchy right basilar opacification such as pneumonia.
CTA A/P 04/14/25AM:
1. Right rectus sheath hematoma, with a focus of extravasation. Rectus sheath hematoma measures 2.4 cm in thickness, compared to 2.1 cm on prior noncontrast CT. No intraperitoneal hemorrhage.
2. Hyperattenuating material within the gastric lumen, which may represent hemorrhage or hyperattenuating ingested food products. No extravasation of contrast within the stomach.
Acute hemorrhagic shock due to acute blood loss anemia due to acute massive GIB and now rectus sheath hematoma:
-s/p 5U pRBCs in total
-EGD above, gastric ulcer, injected/cautery/clips
-was on PPI gtt, now on Protonix 40mg IV BID
-was on Levophed gtt, then off, then back on Levophed briefly 04/14/25AM (see below)
-O/N 04/13/25-04/14/25 patient had tachypnea. CXR above. Pt also had a drop in hemoglobin, hypotension, and worsening tachycardia. Abdomen was more distended. CTA A/P above. The patient was given 500 cc NS bolus and Levophed gtt was restarted.
Patient was transferred back to ICU level of care and CODE STATUS was changed to full code. The case has been reviewed by interventional radiology. No intervention is recommended at this time his rectus sheath hematoma is small and these generally
tamponade on their own.
-cont Zosyn
-cont IVFs
TONEY:
-due to GIB/prerenal azotemia
-resolved
Agitation/Delirium of acute illness in the setting of underlying dementia:
-Ativan PRN
DNR
Anticipated Discharge: Within 24 hours
Subjective/Interval History
-
Date of Service: April 17, 2025
Objective Data
-
Vital Signs:
Vital Signs
Temp Pulse Resp BP Pulse Ox
97.7 F 107 12 113/71 87
04/17/25 07:05 04/17/25 07:05 04/17/25 07:05 04/17/25 07:05 04/17/25 09:59
I&O
04/16/25 04/17/25 04/18/25
06:59 06:59 06:59
Intake Total 0 / 0 0 / 0 0 / 0
Output Total 100 / 100 1200 / 1200
Balance 0 / 0 -100 / -100 -1200 / -1200
[2025-04-17 19:05] VITALS: BP 107/67
--- NOTE | 2025-04-18 00:35 | PTCARENOTE ---
[facility] [employer] notified and due to patient's age, he does not qualify for donation.
[2025-04-18 08:00] VITALS: BP 133/77
[2025-04-18] MEDS: MORPHINE SULFATE 2 MG IV ×5 (09:35→18:20)
[2025-04-18] MEDS: ATIVAN 1 MG IV ×2 (09:50→18:19)
--- NOTE | 2025-04-18 14:28 | CM ---
CM following re: discharge planning.
Reviewed pt's chart.
Per chart review, pt is comfort care.
CM is available for emotional support.
--- NOTE | 2025-04-18 15:00 | W.PN.HOSP.TC ---
Today's Communication/Plan
-
see plan
Assessment / Plan
Assessment / Plan
Gen: remains NAD, NCAT
CV: remains tachy, reg rhythm, +S1/S2, no m/r/g.
Resp: remains CTAB anteriorly, no rales, wheezes, or rhonchi.
Abd: hypoactive BS, soft, ND
Neuro: Unresponsive
Psych: calm
Pt comfort care. Cont Ativan/Morphine gtt/Haldol PRN.
From 04/14/25:
EGD: Coffee ground material coating the duodenum. Hematin (altered blood/qhqahn-wrukbg-jbjm material) in the entire stomach. Fluid aspiration performed about 2000ml. Non-bleeding gastric ulcer with pigmented material. Injected. Treated with bipolar
cautery. Clips were placed. This could be the likely cause of bleeding. 5 cm hiatal hernia. Scattered ulcerations esophagitis. Blebs found in the esophagus. Clips were placed.
CXR 04/14/25PM: Left basilar opacification again seen which could represent atelectasis and/or pneumonia and small left pleural effusion. Suspected new patchy right basilar opacification such as pneumonia.
CTA A/P 04/14/25AM:
1. Right rectus sheath hematoma, with a focus of extravasation. Rectus sheath hematoma measures 2.4 cm in thickness, compared to 2.1 cm on prior noncontrast CT. No intraperitoneal hemorrhage.
2. Hyperattenuating material within the gastric lumen, which may represent hemorrhage or hyperattenuating ingested food products. No extravasation of contrast within the stomach.
Acute hemorrhagic shock due to acute blood loss anemia due to acute massive GIB and now rectus sheath hematoma:
-s/p 5U pRBCs in total
-EGD above, gastric ulcer, injected/cautery/clips
-was on PPI gtt, now on Protonix 40mg IV BID
-was on Levophed gtt, then off, then back on Levophed briefly 04/14/25AM (see below)
-O/N 04/13/25-04/14/25 patient had tachypnea. CXR above. Pt also had a drop in hemoglobin, hypotension, and worsening tachycardia. Abdomen was more distended. CTA A/P above. The patient was given 500 cc NS bolus and Levophed gtt was restarted.
Patient was transferred back to ICU level of care and CODE STATUS was changed to full code. The case has been reviewed by interventional radiology. No intervention is recommended at this time his rectus sheath hematoma is small and these generally
tamponade on their own.
-cont Zosyn
-cont IVFs
TONEY:
-due to GIB/prerenal azotemia
-resolved
Agitation/Delirium of acute illness in the setting of underlying dementia:
-Ativan PRN
DNR
Anticipated Discharge: Within 24 hours
Subjective/Interval History
-
Date of Service: April 18, 2025
Unresponsive
Objective Data
-
Vital Signs:
Vital Signs
Temp Pulse Resp BP Pulse Ox
99.9 F 118 16 133/77 94
04/18/25 08:00 04/18/25 08:00 04/18/25 08:00 04/18/25 08:00 04/18/25 08:00
I&O
04/17/25 04/18/25 04/19/25
06:59 06:59 06:59
Intake Total 0 / 0 0 / 0
Output Total 100 / 100 1750 / 1750
Balance -100 / -100 -1750 / -1750
[2025-04-18] MEDS: MORPHINE SULFATE 4 MG IV ×2 (18:38→19:43)
[2025-04-18] MEDS: MORPHINE 100 IV (19:40)
[2025-04-18] MEDS: MORPHINE SULFATE 6 MG IV (21:31)
--- NOTE | 2025-04-18 23:44 | W.PN.DEATH ---
Pronouncement of
-
Called to see patient to pronounce.
No spontaneous heart tones or respirations noted.
Patient not responsive to verbal stimuli.
Patient is pronounced .
Time of : 21:45
Date of : 04/18/25
Cause of : Acute hemorrhagic shock due to acute blood loss anemia due to acute massive GIB
Family Notified: Yes (Family at bedside when patient )
--- NOTE | 2025-04-19 07:29 | W.PN.DEATH ---
Pronouncement of
-
Called to see patient to pronounce.
No spontaneous heart tones or respirations noted.
Patient not responsive to verbal stimuli.
Patient is pronounced .
Time of : 21:45
Date of : 04/18/25
Cause of : Acute hemorrhagic shock due to acute blood loss anemia due to acute massive GIB
Family Notified: Yes (Family (daughters) at bedside when patient )
== END 2025-04-19 01:02 | disposition expired | DRG 377 ==
LOC: 2 NORTH 02:46
PROVIDERS: Internal Medicine; Nurse Practitioner Family; Nurse Practitioner Primary Care; Physician Assistant; ADMITTING PHYSICIAN Internal Medicine; ATTENDING PHYSICIAN Internal Medicine; CONSULT PHYSICIAN Internal Medicine; EMERGENCY PHYSICIAN Student in an Organized Health Care Education/Training Program; FAMILY PHYSICIAN Student in an Organized Health Care Education/Training Program; OTHER PHYSICIAN Internal Medicine Gastroenterology
PROC: 0D568ZZ Destruction of Stomach, Via Natural or Artificial Opening Endoscopic (ICD-10-PCS; 2025-04-12)
PROC: 30233N1 Transfusion of Nonautologous Red Blood Cells into Peripheral Vein, Percutaneous Approach (ICD-10-PCS; 2025-04-12)
PROC: 3E0G8GC Introduction of Other Therapeutic Substance into Upper GI, Via Natural or Artificial Opening Endoscopic (ICD-10-PCS; 2025-04-12)
PROC: 0W3P8ZZ Control Bleeding in Gastrointestinal Tract, Via Natural or Artificial Opening Endoscopic (ICD-10-PCS; 2025-04-12)
DX: K25.4 Chronic or unspecified gastric ulcer with hemorrhage (principal); J18.9 Pneumonia, unspecified organism; K20.91 Esophagitis, unspecified with bleeding; D62 Acute posthemorrhagic anemia; J98.11 Atelectasis; N17.9 Acute kidney failure, unspecified; F03.911 Unspecified dementia, unspecified severity, with agitation; F03.93 Unspecified dementia, unspecified severity, with mood disturbance; F03.92 Unspecified dementia, unspecified severity, with psychotic disturbance; E87.0 Hyperosmolality and hypernatremia; R57.8 Other shock; K44.9 Diaphragmatic hernia without obstruction or gangrene; Z66 Do not resuscitate; E78.00 Pure hypercholesterolemia, unspecified; N18.30 Chronic kidney disease, stage 3 unspecified; Z86.11 Personal history of tuberculosis; Z86.73 Personal history of transient ischemic attack (TIA), and cerebral infarction without residual deficits; F32.9 Major depressive disorder, single episode, unspecified; N40.0 Benign prostatic hyperplasia without lower urinary tract symptoms; Z79.82 Long term (current) use of aspirin; Z79.899 Other long term (current) drug therapy; E86.0 Dehydration; E86.1 Hypovolemia; E87.8 Other disorders of electrolyte and fluid balance, not elsewhere classified; Z11.52 Encounter for screening for COVID-19
CPT/HCPCS: 70450; 71045; 74174; 74176; 80048; 80053; 81003; 81015; 82805; 83605; 83735; 85014; 85018; 85025; 85027; 85610; 85730; 86850; 86900; 86901; 86920; 87086; 87502; 87811; 93005; 96361; 96374; 96375; 99285; P9016; P9058; Q9967